=== PATIENT | female | born 1995 | race Caucasian/White ===

== ENCOUNTER 2024-10-29 06:40 | Day surgery (SDC) | payer MEDICAID ==
[~2024-10-29 06:40] MED LIST: Propofol 200 MG/20 ML SDV ONE
[2024-10-29] MEDS: Lactated Ringers 1,000 ML IV SCH (07:24)
[2024-10-29] MEDS ORDERED: Propofol 200 MG/20 ML SDV ONE (09:27)
== END 2024-10-29 10:17 | disposition home or self-care (01) ==
LOC: DL.ENDO 06:40
PROVIDERS: ATTEND Internal Medicine Gastroenterology
DX: R10.9 Unspecified abdominal pain (principal); E66.09 Other obesity due to excess calories; K21.9 Gastro-esophageal reflux disease without esophagitis; Z79.899 Other long term (current) drug therapy
CPT/HCPCS: 43239; 81025; J7120; 00731

== ENCOUNTER 2025-03-25 04:14 | Emergency (ER) | payer SELFPAY ==
[2025-03-25 04:29] LABS: BASOPHILS PERCENT AUTO 0.1 % (0.0-1.0); EOSINOPHILS PERCENT AUTO 1.4 % (1.0-3.0); LYMPHOCYTES PERCENT AUTO 18.2 % (20.5-50.1); MONOCYTES PERCENT AUTO 5.4 % (2-8); NEUTROPHILS PERCENT AUTO 74.9 % (42.2-75.2); PLATELET COUNT,PLT 271 10^3/uL (150-450); RED BLOOD CELL COUNT 4.79 10^6/uL (4.2-5.4); WHITE BLOOD CELL COUNT,WBC 10.2 10^3/uL (5.0-10.0)
[2025-03-25] MEDS: GI Cocktail Oral Solution 30 ML PO ONE (04:39)
[2025-03-25 04:50] LABS: A/G RATIO 1.2; ALANINE AMINOTRANSFERASE,ALT 42 U/L (14-59); ASPARTATE AMNIOTRANSFERASE,AST 16 U/L (15-37); BILIRUBIN TOTAL 0.3 mg/dL (0.2-1.0); BLOOD UREA NITROGEN,BUN 15 mg/dL (7-18); CARBON DIOXIDE,CO2 21 mmol/L (21-32); CHLORIDE,CL 106 mmol/L (98-107); CREATININE 0.68 mg/dL (0.55-1.02); GLUCOSE RANDOM 130 mg/dL (70-99); POTASSIUM,K 3.6 mmol/L (3.5-5.1); PROTEIN TOTAL,TP 7.2 g/dL (6.4-8.2); SODIUM,NA 142 mmol/L (136-145)
[2025-03-25 04:51] LABS: ESTIMATED GFR 120 mL/min (>=60)
[2025-03-25 05:27] LABS: LACTIC ACID 1.9 mmol/L (0.4-2.0)
== END 2025-03-25 06:55 ==
LOC: DL.ED 04:14
DX: K27.9 Peptic ulcer, site unspecified, unspecified as acute or chronic, without hemorrhage or perforation (principal); Z79.899 Other long term (current) drug therapy
CPT/HCPCS: 36415; 80053; 81025; 83605; 83690; 83735; 84484; 85025; 96374; 96375; 99284; A9270; J2270; J2470